=== PATIENT | female | born 1965 | race Hispanic/Latino ===

== ENCOUNTER 2016-09-06 08:16 | Emergency (ER) | payer MEDICAID ==
[2016-09-06 08:31] VITALS: TEMP 97.8
--- NOTE | 2016-09-06 08:52 | ED PDOC ---
Arrival/HPI - General Chief Complaint: Trauma Time Seen by Provider: 09/06/16 08:30 Historian: Patient - History of Present Illness Narrative History of Present Illness (Text): 09/06/16 08:30 A 51 year old female, who denies any significant past medical history, presents to the emergency department for evaluation of a mechanical fall that took place yesterday. Patient reports yesterday she was walking down her uneven step at home when she tripped and fell. Denies LOC. Patient notes her landlord is aware of the uneven step and has agreed to fix it. She states that yesterday after the fall she felt fine but did have some bruising to the bilateral arms and to the left hip. She notes this morning upon waking up she has some soreness to the bruised area and she notices the bruising has spread so she decided to come in and get evaluated. Patient says her left shoulder is painful with movement. Patient denies any head trauma, loss of consciousness, headache, nausea, vomiting, chest pain, shortness of breath, back pain, neck pain, or any other complaints at this time. Patient denies any alcohol or drug use prior to the fall. Denies anticoagulant use or hx of bleeding disorder. PMD: Dr. Hardy 09/06/16 09:44 Time/Duration: 24 hours Symptom Onset: Sudden Symptom Course: Other Quality: Other (soreness) Activities at Onset: Light Context: Walking, Home Past Medical History - Provider Review Nursing Documentation Reviewed: Yes - Infectious Disease Hx of Infectious Diseases: None - Psychiatric Hx Substance Use: No Family/Social History - Physician Review Nursing Documentation Reviewed: Yes Family/Social History: Unknown Family HX Smoking Status: Heavy Smoker > 10 Cigarettes Daily Hx Alcohol Use: Yes Frequency of alcohol use: Socially Hx Substance Use: No Allergies/Home Meds Allergies/Adverse Reactions: Allergies No Known Allergies Allergy (Verified 09/06/16 08:31) Home Medications: Home Meds Medication Instructions Recorded Confirmed No Known Home Med 09/06/16 09/06/16 Review of Systems - Review of Systems Constitutional: absent: Fevers, Other (head trauma) Eyes: absent: Vision Changes ENT: Normal Respiratory: absent: SOB Cardiovascular: absent: Chest Pain, Syncope Gastrointestinal: absent: Abdominal Pain, Constipation, Diarrhea, Nausea, Vomiting Genitourinary Female: absent: Dysuria Musculoskeletal: Arthralgias (to L hip and L shoulder). absent: Back Pain, Neck Pain Skin: Other (ecchymosis to the bilateral arms with pain, ecchymosis to the left hip with pain) Neurological: absent: Headache, Dizziness, Focal Weakness, Gait Changes Psychiatric: absent: Depression Physical Exam Vital Signs Reviewed: Yes Vital Signs Temp Pulse Resp BP Pulse Ox 09/06/16 08:27 97.8 F 66 18 112/72 100 Temperature: Afebrile Blood Pressure: Normal Pulse: Regular Respiratory Rate: Normal Appearance: Positive for: Well-Appearing, Non-Toxic, Comfortable Pain Distress: None Mental Status: Positive for: Alert and Oriented X 3 - Systems Exam Head: Present: Atraumatic, Normocephalic. No: Tenderness Pupils: Present: PERRL Extroacular Muscles: Present: EOMI Conjunctiva: Present: Normal Mouth: Present: Moist Mucous Membranes Neck: Present: Normal Range of Motion. No: MIDLINE TENDERNESS, Paraspinal Tenderness Respiratory/Chest: Present: Clear to Auscultation, Good Air Exchange, Other (no bony rib tenderness). No: Respiratory Distress, Accessory Muscle Use Cardiovascular: Present: Regular Rate and Rhythm, Normal S1, S2. No: Murmurs Abdomen: Present: Normal Bowel Sounds. No: Tenderness, Distention, Peritoneal Signs Back: Present: Normal Inspection. No: Midline Tenderness, Paraspinal Tenderness Upper Extremity: Present: Normal ROM, NORMAL PULSES, Neurovascularly Intact, Other (scant bony point tenderness to the left shoulder; ecchymosis to the bilateral arms with no bony point tenderness. ). No: Cyanosis, Edema, Tenderness, Swelling, Erythema, Temperature Abnormalties, Deformity Lower Extremity: Present: NORMAL PULSES, Normal ROM, Neurovascularly Intact, Other (large area of ecchymosis to the left lateral hip; no bony point tenderness of the bilateral hips). No: Edema, CALF TENDERNESS, Cyanosis, Tenderness, Swelling, Erythema, Deformity, Temperature Abnormalties Neurological: Present: GCS=15, CN II-XII Intact, Speech Normal, Motor Func Grossly Intact, Normal Sensory Function, Gait Normal (normal and steady gait) Skin: Present: Warm, Dry, Normal Color. No: Rashes Psychiatric: Present: Alert, Oriented x 3, Normal Insight, Normal Concentration Medical Decision Making ED Course and Treatment: 09/06/16 08:30 Impression: A 51 year old female comes in for evaluation after a mechanical fall. On physical examination the patient has ecchymosis to the bilateral arms and the the lateral left hip. She is complaining of pain to L shoulder with report of pain with ROM. She has full active and passive range of motion to all 4 extremities and a normal gait. She has no shortness of breath or chest pain. Differential Diagnosis include but are not limited to: fracture vs. sprain vs. strain Plan: -- Left Femur X-ray -- Left Hip X-ray -- Left Shoulder X-ray -- Urine -- Toradol -- Reassess and disposition Progress Notes: 09/06/16 09:36 Xrays are negative for fracture. Patient was instructed to use motrin for the pain, return with any worsening symptoms and follow-up with PMD within 2 days for further evaluation. - RAD Interpretation Radiology Orders: 09/06/16 08:38 Femur Left [FEMUR MIN 2 VIEWS LT] [RAD] Stat HIP MIN 2V W/ PELVIS LT [RAD] Stat SHOULDER LEFT [RAD] Stat - Medication Orders Current Medication Orders: Discontinued Medications Ketorolac Tromethamine (Toradol) 60 mg IM STAT STA Stop: 09/06/16 08:40 Last Admin: 09/06/16 08:55 Dose: 60 mg - Scribe Statement The provider has reviewed the documentation as recorded by the [facility] [employer] Provider Scribe Attestation: All medical record entries made by the Scribe were at my direction and personally dictated by me. I have reviewed the chart and agree that the record accurately reflects my personal performance of the history, physical exam, medical decision making, and the department course for this patient. I have also personally directed, reviewed, and agree with the discharge instructions and disposition. Disposition/Present on Arrival - Present on Arrival Any Indicators Present on Arrival: No History of DVT/PE: No History of Uncontrolled Diabetes: No Urinary Catheter: No History of Decub. Ulcer: No History Surgical Site Infection Following: None - Disposition Have Diagnosis and Disposition been Completed?: Yes Diagnosis: Fall (on) (from) other stairs and steps, initial encounter, Shoulder pain, left Disposition: HOME/ ROUTINE Disposition Time: 09:38 Patient Plan: Discharge Patient Problems: Current Active Problems Problem Status Onset Fall (on) (from) other stairs and steps, initial encounter Acute Shoulder pain, left Acute Condition: GOOD Discharge Instructions (ExitCare): Shoulder Sprain (ED), Fall Prevention (ED) Additional Instructions: Follow up with PMD within 2 days. Return to emergency department if condition worsens. Motrin for pain. Referrals: Letitia Hardy MD [Primary Care Provider] - Follow up with primary
--- NOTE | 2016-09-06 09:37 | RAD ---
PROCEDURE: Left Femur Radiographs. HISTORY: fall down stairs with L upper thigh pain COMPARISON: None. TECHNIQUE: AP and Lateral Radiographs of the left femur. FINDINGS: FEMUR: Normal. No fracture. SOFT TISSUES: Normal. OTHER FINDINGS: None. IMPRESSION: Unremarkable radiographs of the left femur.
--- NOTE | 2016-09-06 09:43 | RAD ---
PROCEDURE: Radiographs of the Left Shoulder HISTORY: fall with L shoulder pain COMPARISON: No prior. FINDINGS: BONES: Normal. No fracture. JOINTS: Normal. Glenohumeral and acromioclavicular joints preserved. No osteoarthritis. SOFT TISSUES: Normal. OTHER FINDINGS: None. IMPRESSION: Normal radiographs of the left shoulder.
--- NOTE | 2016-09-06 09:43 | RAD ---
PROCEDURE: Left Hip and pelvis X-ray Radiographs. HISTORY: fall down stairs with L hip pain COMPARISON: None. FINDINGS: BONES: Normal. No fracture. JOINTS: Normal. SOFT TISSUES: Normal. OTHER FINDINGS: None. IMPRESSION: Negative study
[2016-09-06 09:50] VITALS: BP 110/80; PULSE 65; RESP 15; O2SAT 97
== END 2016-09-06 09:50 | disposition home or self-care (01) ==
LOC: ED 08:16
DX: M25.512 Pain in left shoulder (principal); W10.8XXA Fall (on) (from) other stairs and steps, initial encounter; Y93.89 Activity, other specified; Y92.008 Other place in unspecified non-institutional (private) residence as the place of occurrence of the external cause
CPT/HCPCS: 73030; 73502; 73552; 96372; 99283; J1885

== ENCOUNTER 2017-09-23 14:54 | Emergency (ER) | payer MEDICAID ==
--- NOTE | 2017-09-23 15:25 | ED PDOC ---
Arrival/HPI - General Time Seen by Provider: 09/23/17 15:25 Historian: Patient - History of Present Illness Narrative History of Present Illness (Text): 09/23/17 15:25 This 52 yo female who denies pmh, presents to this Ed c/o left rib pain x 2 days. Patient stated she slipped and fell on her left posterior rib. Patient denies other complains. Time/Duration: Other (see hpi) Quality: Aching Context: Home Past Medical History - Provider Review Nursing Documentation Reviewed: Yes - Infectious Disease Hx of Infectious Diseases: None - Psychiatric Hx Substance Use: No Family/Social History - Physician Review Nursing Documentation Reviewed: Yes Family/Social History: Other (noncontributory) Smoking Status: Heavy Smoker > 10 Cigarettes Daily Hx Alcohol Use: Yes Hx Substance Use: No Allergies/Home Meds Allergies/Adverse Reactions: Allergies No Known Allergies Allergy (Verified 09/06/16 08:31) Review of Systems - Review of Systems Constitutional: Normal. absent: Fatigue, Weight Change, Fevers, Night Sweats Eyes: Normal ENT: Normal Respiratory: Normal. absent: SOB, Cough, Sputum, Wheezing Cardiovascular: Normal. absent: Palpitations Gastrointestinal: Normal Genitourinary Female: Normal Musculoskeletal: Other (see hpi) Skin: Normal Neurological: Normal Endocrine: Normal Hemo/Lymphatic: Normal Psychiatric: Normal Physical Exam Vital Signs Temp Pulse Resp BP Pulse Ox 09/23/17 16:22 97.9 F 62 18 123/53 L 98 09/23/17 14:54 98.7 F 80 18 97 Temperature: Afebrile Blood Pressure: Normal Pulse: Regular Respiratory Rate: Normal Appearance: Positive for: Well-Appearing, Non-Toxic, Comfortable Pain Distress: None Mental Status: Positive for: Alert and Oriented X 3 - Systems Exam Head: Present: Atraumatic, Normocephalic, Other (no raccoon sign. no greer sign) Pupils: Present: PERRL, Other (no hyphema) Extroacular Muscles: Present: EOMI Conjunctiva: Present: Normal Ears: Present: Normal, NORMAL TM, Other (hemotympanum) Mouth: Present: Moist Mucous Membranes Neck: Present: Normal Range of Motion Respiratory/Chest: Present: Clear to Auscultation, Good Air Exchange, Tender to Palpation ((+) left posterior chest wall ecchymosis and tenderness). No: Respiratory Distress, Accessory Muscle Use, Wheezes, Decreased Breath Sounds, Rales, Retracting, Rhonchi, Tachypneic Cardiovascular: Present: Regular Rate and Rhythm, Normal S1, S2. No: Murmurs Back: Present: Normal Inspection Upper Extremity: Present: Normal Inspection, Normal ROM Lower Extremity: Present: Normal Inspection, Normal ROM Neurological: Present: GCS=15, CN II-XII Intact, Speech Normal, Motor Func Grossly Intact, Normal Sensory Function, Normal Cerebellar Funct, Gait Normal Skin: Present: Warm, Dry, Normal Color. No: Rashes Psychiatric: Present: Alert, Oriented x 3, Normal Insight, Normal Concentration Medical Decision Making ED Course and Treatment: 09/23/17 16:56 Re-evaluation. Patient feels better. Discussed results and plan with patient who expresses understanding. All questions answered and there is agreement with the plan to discharge home with instructions. Patient stable for discharge. Return if symptoms persist or worsen. Re-evaluation Time: 16:56 Reassessment Condition: Re-examined, Improved - RAD Interpretation Narrative RAD Interpretations (Text): 09/23/17 16:55 Chest x-rays w/rib series: no Fx. no pneumo Radiology Orders: 09/23/17 15:38 RIBS LEFT & PA CHEST [RAD] Stat - Medication Orders Current Medication Orders: Discontinued Medications Ketorolac Tromethamine (Toradol) 15 mg IM STAT STA Stop: 09/23/17 15:40 Last Admin: 09/23/17 16:22 Dose: 15 mg MAR Pain Assessment Document 09/23/17 16:22 EQ (Rec: 09/23/17 16:22 EQ [email or web address] Pain Reassessment Is this a pain reassessment? No Sleep Is patient sleeping during reassessment? No Presence of Pain Presence of Pain Yes IM Administration Charges Document 09/23/17 16:22 EQ (Rec: 09/23/17 16:22 EQ [email or web address] Charges for Administration # of IM Administrations 1 Disposition/Present on Arrival - Present on Arrival Any Indicators Present on Arrival: No History of DVT/PE: No History of Uncontrolled Diabetes: No Urinary Catheter: No History Surgical Site Infection Following: None - Disposition Have Diagnosis and Disposition been Completed?: Yes Diagnosis: Chest wall pain Disposition: HOME/ ROUTINE Disposition Time: 17:06 Patient Plan: Discharge Patient Problems: Current Active Problems Problem Status Onset Chest wall pain Acute Condition: GOOD Discharge Instructions (ExitCare): Chest Pain That Is Not Caused by the Heart ( DC) Additional Instructions: Call private doctor for follow up visit in 1-2 days. Take medication as instructed. Return to emergency if symptoms worsen. Use Incentive spirometer for 10 minutes every 2 hours for at least 5 days Prescriptions: Acetaminophen/Hydrocodone Bi [Vicodin 300 mg-5 mg] 1 tab PO Q6H PRN #15 tab PRN Reason: Pain, Severe (8-10) Naproxen 500 mg PO BID PRN #14 tablet PRN Reason: Pain, Severe (8-10) Referrals: Letitia Hardy MD [Family Provider] - Follow up with primary Forms: WORK NOTE
[2017-09-23 16:14] VITALS: RESP 18
[2017-09-23 16:23] VITALS: TEMP 97.9; O2SAT 98
--- NOTE | 2017-09-23 17:35 | RAD ---
Date of service: 09/23/2017 PROCEDURE: Radiographs of the Chest and Left Ribs. HISTORY: pain s/p fall COMPARISON: None available. TECHNIQUE: Frontal radiograph of the chest and multiple oblique radiographs of the left ribs were obtained. FINDINGS: LEFT RIBS: Questionable nondisplaced fracture of the left lateral 6th rib. LUNGS: Clear. PLEURA: No pneumothorax or pleural fluid. CARDIOVASCULAR: Normal sized heart. No pulmonary vascular congestion. OTHER FINDINGS: None. IMPRESSION: Questionable nondisplaced fracture of the left lateral 6th rib.
[2017-09-23 17:38] VITALS: BP 127/72; PULSE 65
== END 2017-09-23 17:35 | disposition home or self-care (01) ==
LOC: ED 14:54
DX: R07.89 Other chest pain (principal); F17.210 Nicotine dependence, cigarettes, uncomplicated
CPT/HCPCS: 71101; 96372; 99284; J1885